=== PATIENT | female | born 1935 | race Caucasian/White ===

== ENCOUNTER 2016-11-09 19:22 | Inpatient (IN) ==
[2016-11-09 21:06] VITALS: BMI 23.3
[2016-11-09] MEDS ORDERED: IOHEXOL 300mg/ml 100ml INJECTION ONE (21:27)
[2016-11-09] MEDS ORDERED: SALINE FLUSH 10ml SYRINGE ONE (21:28)
[2016-11-09] MEDS ORDERED: NS 100 ML ONE (21:28)
[2016-11-09] MEDS ORDERED: ONDANSETRON 4 MG/2 ML INJECTION IVP PRN (21:37)
[2016-11-09] MEDS: HYDROMORPHONE 2 MG/ML INJECTION IVP PRN (22:14)
[2016-11-09] MEDS: NS 1,000 ML IV SCH (22:15)
[2016-11-09] MEDS: PIPERACILLIN/TAZOBACTAM 3.375 GM in NS 100 ML IV SCH (22:16)
[2016-11-10 00:32] VITALS: RESP 16
--- NOTE | 2016-11-10 00:32 | History & Physical Report ---
History of Present Illness Date: 11/10/16 Chief complaint: abdomen pain HPI: This is a 81 y/o female with a history of atrial fibrillation on coumadin therapy. The patient had onset of abdomen pain for the past 2 days and was seen in a local ED and found to have obstructive jaudince with associated pancreatitis. The local ED did not have CT capability and was transferred to our hospital for further workup of her obstructive jaundice. The patient still has her gallbladder in. The patient isnow in our medical unit for assessment Review of Systems Review of systems: no headache, no fever, chills or sweats, no sore throat, no ear pain no trouble swallowing, no neck or jaw pain, no chest pain, no shortness of breath, no cough , no congestion, no heart palpitations, has nausea without emesis, diffuse abdomen pain right upper quad that does not radiate, no change in stools with chonic constipation issues, no blood in her stools, no edema, no focal neuro complatints. 10 point ROS otherwsie neg x for outlined abvove. 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) Factor V Leiden mutation (Chronic Medical) Glaucoma (Chronic Medical) HTN (hypertension) (Chronic Medical) Hypercholesterolemia (Chronic Medical) Obesity (Chronic Medical) Osteoarthritis (Chronic Medical) History of tachycardia (Resolved Medical) Hx of gastrointestinal hemorrhage (Resolved Medical) bleeding glastric ulcer 2007, 2011, 2013 Hx pulmonary embolism (Resolved Medical) Bilateral Surgical History: tonsilectomy and adenoidectomy Family History: Family History Father , at age 79 Parkinsons disease Mother , at age 83 CVA (cerebral vascular accident) Diabetes mellitus Maternal Uncle CVA (cerebral vascular accident) Maternal Uncle Lung cancer Smoker Paternal Grandfather Liver disease - Social History Smoking status: Never smoker Medications Home Medications Medication Instructions Recorded Confirmed Type calcium carbonate 300 mg (750 mg) See Label Instructions PO TID PRN 09/24/16 History chewable tablet camphor-methyl salicylate-menthol 1 patch TOPICAL .TID PRN patch 09/24/16 History topical patch cholecalciferol (vitamin D3) 2,000 2,000 unit PO DAILY cap 09/24/16 History unit capsule diclofenac 1 % topical gel 2 g TOPICAL .COMPLEX PRN 09/24/16 History donepezil 10 mg tablet 10 mg PO .at HS tab 09/24/16 History famotidine 20 mg tablet 20 mg PO .at HS tab 09/24/16 History fluticasone 50 mcg/actuation nasal See Label Instructions INTRANASAL 09/24/16 History spray,suspension .QD PRN g lutein 20 mg tablet 20 mg PO .at HS tab 09/24/16 History multivitamin with iron tablet 1 tab PO DAILY tab 09/24/16 History naproxen sodium 220 mg tablet 220 mg PO QAM tab 09/24/16 History omeprazole 20 mg capsule,delayed 20 mg PO BID 09/24/16 History release risperidone 0.25 mg tablet 0.25 mg PO BID tab 09/24/16 History sertraline 50 mg tablet 50 mg PO BID #0 tab 09/24/16 History trazodone 150 mg tablet 150 mg PO .at HS tab 09/24/16 History warfarin 5 mg tablet 1 tab PO .COMPLEX #0 tab 11/08/16 History Allergies Allergy/AdvReac Type Severity Reaction Status Date / Time Sulfa (Sulfonamide Allergy Unknown NAUSEA AND Verified 10/07/14 17:26 Antibiotics) SICKNESS Exam Vital Signs: Temperature 97.8 F 11/09/16 20:59 Pulse Rate 84 11/09/16 20:59 Respiratory Rate 20 11/09/16 20:59 Blood Pressure 157/72 H 11/09/16 20:59 Pulse Oximetry 96 11/09/16 20:59 Oxygen Delivery Method Room Air Telemetry Rhythm: A-fib Height: 1.57 m Weight: 58 kg Body Mass Index: 23.3 - Constitutional Present: mild distress, well nourished, thin, cooperative - Routine HEENT Exam Head: Present: normocephalic, atraumatic Eye: Present: EOMI, PERRL, conjunctival icterus ENT: Present: mucous membranes dry - Routine Neck Exam Present: supple, full ROM - Routine Respiratory Exam Present: CTA bilaterally. Absent: rales, respiratory distress, rhonchi, stridor , wheezes - Routine Cardiovascular Exam Present: irregularly irregular - Routine Abdominal Exam Comments: soft , minimal tender to palpation per nrusing, bowel sounds present - Routine Extremities Exam Present: full ROM. Absent: edema - Routine Back/Spine/Pelvis Exam Back/Spine: Present: full ROM - Routine Skin Exam Present: intact - Routine Neurological Exam Present: alert, oriented X3, CN II-XII intact. Absent: motor deficit - Routine Psychiatric Exam Present: normal affect Results - Labs CBC & Chem 7: 11/09/16 22:25 11/09/16 22:25 Labs: transaminases sig elevated with elevated bilirubin lipse sig elevated - Imaging and Cardiology CT scan - abdomen Additional comments: abnormal CT with impacted distal common bile duct stone and findings c/w subacute cholecystitis Assessment and Plan (1) Acute cholecystitis Current visit: Yes Status: Acute 11/10/16 00:36 patient with sig symptoms at this time. elevated WBC count with exam c/w inflammed gallbladder. what complicates this is a distal common duct stone and acute pancreatitis. Further the patient is anticoagulated with a sig elevated INR. Tonight the patient is NPO. The pateint will have repeat labs in am including lipase. The am team will need to discuss with surgery but perhaps this patient will need to go for ERCP first before removal of gallbladder. Will not acutely reverse INR tongiht, but rather follow inthe am. (2) Sepsis Current visit: Yes Status: Acute 11/10/16 00:40 patient meets criteria for sepsis at this time. fluids and repeat sepsis markers in the am. (3) Atrial fibrillation Current visit: Yes Status: Acute 11/10/16 00:41 monitor on tele overnight. on coumadin but no chronotropic meds. hold coumadin acutely with need for ? procedure. will not reverse but rather repeat INR oin am (4) Dementia Current visit: Yes Status: Acute 11/10/16 00:42 type unspecified. on aricept, min ds on exam tonight, to be aware of (5) GERD (gastroesophageal reflux disease) Current visit: Yes Status: Acute 11/10/16 00:43 continue IV PPI (6) History of pulmonary embolism Current visit: Yes Status: Acute 11/10/16 00:49 no sure if provoked. or history for now have to hold coumadin (7) Acute biliary pancreatitis Current visit: Yes Status: Acute 11/10/16 00:49 secondary to stone. NPO,ivf, iv pain meds repeat lipase in am DVT Prophylaxis: SCD's, Coumadin Resuscitation Status: Full Code Sepsis Assessment - Evaluation Sepsis screening result: No Definite Risk Hospital Course Summary Disclaimer: The visit summary below is not to be considered part of the above Progress Note.
[2016-11-10] MEDS: PIPERACILLIN/TAZOBACTAM 3.375 GM in NS 100 ML IV SCH ×2 (03:43→09:13)
[2016-11-10] MEDS ORDERED: PHYTONADIONE 10 MG/ML IVP ONE (05:52)
[2016-11-10] MEDS: HYDROMORPHONE 2 MG/ML INJECTION IVP PRN ×2 (06:13→11:52)
[2016-11-10 08:01] VITALS: BP 126/65; TEMP 96.9; O2SAT 92
[2016-11-10] MEDS: NS 1,000 ML IV SCH (09:14)
[2016-11-10] MEDS ORDERED: PHYTONADIONE (Adult) INJ 5 MG in NS 50 ML IV ONE (10:15)
--- NOTE | 2016-11-10 10:28 | Discharge Summary ---
Discharge Information Date of admission: 11/09/16 20:38 Anticipated date of discharge: 11/10/16 (Transfer to [facility] in [place]) Attending Physician: Shereen Higuera MD Primary care physician: Mc Car MD Consults: 11/09/16 22:30 Dietary Consult [CONS] Routine Comment: Reason For Exam: - Discharge Diagnosis (1) Supratherapeutic INR Status: Acute (2) Common bile duct (CBD) obstruction Status: Acute (3) Factor V Leiden Status: Acute - Laboratory Labs: 11/10/16 04:30 11/10/16 04:30 Lipase is improved to 2122 from 6560 at admission. AST is 1148, ALT 806, AP 227 , bilirubin 9.1. INR is 7.80 at 0400 on 11/10; received 5 mg IV vit K after this value was resulted and additional 5 mg prior to transfer. - Radiology Radiology: CTAP with IV contrast was done 11/09/16 at the time of admission from [place]. This study was compared to a CTAP in 2011. Findings are notable for large hiatal hernia, small right pleural effusion, intrahepatic and extrahepatic biliary duct dilatation and 6 mm calcified stone in the distal common bile duct near the ampulla of Vater. Diffuse edema is noted in the periportal distribution of the liver. The gallbladder is distended and shows mild wall thickening as well as surrounding edema. The pancreas is severely atrophic with no distinct mass appreciated, unchanged from 01/25/2012. Dilated pancreatic duct suggests there is probably a common channel between the CBD and pancreatic duct. History of Present Illness HPI: From initial H&P per Dr. Beach overnight: This is a 81 y/o female with a history of atrial fibrillation on coumadin therapy. The patient had onset of abdomen pain for the past 2 days and was seen in a local ED and found to have obstructive jaudince with associated pancreatitis. The local ED did not have CT capability and was transferred to our hospital for further workup of her obstructive jaundice. The patient still has her gallbladder in. The patient is now in our medical unit for assessment 11/10/16 10:29 Objective Vital signs: Temperature 96.9 F 11/10/16 08:00 Pulse Rate 89 11/10/16 08:00 Respiratory Rate 16 11/10/16 08:00 Blood Pressure 126/65 11/10/16 08:00 Pulse Oximetry 92 11/10/16 08:00 Oxygen Delivery Method Room Air Rhythm: Normal Sinus Rhythm Weight: 62 kg - Constitutional Present: no acute distress, well nourished, well developed Comments: elderly woman with noticeable jaundice, hard of hearing - Routine HEENT Exam Head: Present: normocephalic, atraumatic Eye: Present: EOMI, PERRL, conjunctival icterus ENT: Present: mucous membranes moist - Routine Respiratory Exam Present: CTA bilaterally. Absent: accessory muscle use, dyspnea, respiratory distress - Routine Cardiovascular Exam Present: RRR. Absent: murmur, rubs - Routine Abdominal Exam Present: soft, tenderness (throughout, worse in epigastrium), distended (mild). Absent: rebound, guarding, rigid - Routine Extremities Exam Absent: cyanosis, clubbing, edema - Routine Skin Exam Present: intact, dry, warm, jaundice. Absent: petechiae, rash - Routine Neurological Exam Present: alert, oriented X3, normal speech - Routine Psychiatric Exam Present: normal affect, cooperative Hospital Course This is a general summary of the patient's hospital course. For more details refer to the complete medical record. Patient was admitted overnight, CTAP obtained as noted and reviewed by me this morning. She received vit K 5 mg IV this morning as INR resulted at 7.8 (on warfarin, has not been eating and drinking). She has obstructive jaundice and ongoing abdominal pain with biliary pancreatitis and possible cholecystitis. WBC is improving with zosyn but obstruction remains the primary issue; she needs ERCP for further evaluation and treatment and that cannot be done here. Discussed with patient and family at bedside. She is agreeable to transfer. I discussed with Dr. Morales (GI) in [place] who is willing to see her in consultation and assist with ERCP, recommends additional dose of Vit K be given now. I discussed with Dr. Mendes at [facility] in [place] who is willing to accept for admission under the hospitalist service. Will plan to transfer by ambulance as her is present here but cannot drive due to medical issues and she would benefit from pain management and close monitoring en route. Additional dose of Vit K ordered and will be given prior to transfer. All questions answered at bedside; anticipate she will require several days admission in [place] pending her clinical course. Time spent with patient: discharge greater than 30 minutes DVT Prophylaxis: other (supratherapeutic INR, not needed ) GI Prophylaxis: Protonix Discharge Plan - Med Rec/Dispo Additional Instructions: Follow up planning will be based on hospital course at the next facility; patient transferring to [facility] in [place] for further care and likely ERCP. Prescriptions: Discontinued Bismuth Subsalicylate [Pepto-Bismol] 262 mg PO 6XD PRN PRN Reason: Upset stomach sertraline 50 mg tablet 50 mg PO BID #0 tab naproxen sodium 220 mg tablet 220 mg PO QAM tab cholecalciferol (vitamin D3) 2,000 unit capsule 2,000 unit PO DAILY cap multivitamin with iron tablet 1 tab PO DAILY tab trazodone 150 mg tablet 150 mg PO .at HS tab camphor-methyl salicylate-menthol topical patch 1 patch TOP .TID PRN patch PRN Reason: pain donepezil 10 mg tablet 10 mg PO .at HS tab lutein 20 mg tablet 20 mg PO .at HS tab omeprazole 20 mg capsule,delayed release 20 mg PO BID diclofenac 1 % topical gel 2 g TOP .COMPLEX PRN PRN Reason: Pain acetaminophen 500 mg tablet 1,000 mg PO BID #60 tab famotidine 20 mg tablet 20 mg PO .at HS tab quetiapine 25 mg tablet 25 mg PO HS #30 tab tolterodine 2 mg tablet 2 mg PO BID #60 tab warfarin 5 mg tablet 1 tab PO .COMPLEX #0 tab - Disposition 02 To [facility] Acute Care - Attestation Attestation Narrative: 11/10/16 10:40 I certify that inpatient status was appropriate for this patient based on the complexity of her care and admitting diagnosis. She needs a higher level of care and procedural specialty care that cannot be provided here, so is being transferred to another facility as above.
[2016-11-10 13:01] VITALS: PULSE 88
--- NOTE | 2016-11-11 10:31 | CT Scan Report ---
Indication: obstructive jaundice PROCEDURE: CT abdomen pelvis w con: Encounter: Initial Comparison: CT abdomen dated January 25, 2012 Technique: Axial CT images were performed through the abdomen and pelvis after the administration of intravenous contrast. Coronal and sagittal two-dimensional reformats. Automated Exposure Control and Iterative Reconstruction dose reducing techniques were utilized. Contrast: Omnipaque 300 75 mL Findings: Atelectasis in the right lower lobe. Trace right effusion. Large hiatal hernia. New severe bile duct dilatation. Gallbladder is distended with pericholecystic inflammation and fluid. There is a large obstructing stone in the ampulla region measuring 6 to 7 mm in size. The spleen is unremarkable. Pancreas shows chronic atrophy of the tail with chronic dilatation of the main pancreatic duct. The adrenal glands are within normal limits. Kidneys are unremarkable. Scattered arterial atherosclerotic plaque. Merritt catheter within a decompressed bladder. No evidence of a bowel obstruction. The appendix is normal. Bone windows show mild degenerative changes in the spine. Mild superior endplate compression deformity of L4 may be chronic. Impression: 1. Obstructing 6 to 7 mm stone at the ampulla of Vater region causing severe obstruction of the bile ducts. Recommend ERCP. 2. Possible associated cholecystitis. There is a preliminary report by [facility]. .
== END 2016-11-10 12:00 | disposition short-term general hospital (02) | DRG 444 ==
LOC: MED 20:38 → PREOBSVTOIN 20:39
PROVIDERS: ADMIT Emergency Medicine; ATTEND Internal Medicine